=== PATIENT | female | born 1950 | race Caucasian/White ===

== ENCOUNTER → 2016-09-28 | Outpatient (CLI) | payer OTHER ==
[~2016-09-28] MED LIST: ASPI81TA28 PO; GLIM2TAB2 PO; LOSA100T65 PO; METF1TAB53 PO; NIAC1TAB59 PO; NIFE60TA55 PO; OMEG10007 PO; PRLSR20 PO
--- NOTE | 2016-09-28 16:59 | DIAGNOSTIC IMAGING REPORT ---
LEFT LOWER EXTREMITY VENOUS DOPPLER HISTORY: M79.605 Left leg pain COMPARISON STUDY: None. FINDINGS: There is normal compressibility, flow, and augmentation within the left lower extremity deep venous system. There is a subcutaneous fluid collection anterior to the knee which measures 6.9 x 7.0 x 1.4 cm. This favors a bursitis. IMPRESSION: No DVT within the left lower extremity. A subcutaneous fluid collection anterior to the knee which favors a bursitis. Electronically signed by: Mikhail Aldrich M.D. 09/28/2016 4:58 PM Dictated Date/Time: 09/28/2016 4:57 PM
== END | disposition home or self-care (01) ==
LOC: C.ULTR 16:27
PROVIDERS: ATTEND Physician Assistant
DX: M79.605 Pain in left leg (principal)

== ENCOUNTER → 2016-10-12 | Outpatient (CLI) | payer OTHER ==
[2016-10-12 18:24] LABS: ALT/SGPT 32 U/L (12-78); AST/SGOT 10 U/L (15-37); BLOOD UREA NITROGEN 26 mg/dl (7-18); BUN/CREATININE RATIO 21.5 (10-20); CALCIUM 9.3 mg/dl (8.5-10.1); CARBON DIOXIDE 27 mmol/L (21-32); CHLORIDE 106 mmol/L (98-107); GLUCOSE 149 mg/dl (70-99); POTASSIUM 4.2 mmol/L (3.5-5.1); SODIUM 139 mmol/L (136-145)
[2016-10-12 18:27] LABS: ALB/GLOB RATIO 1.1 (0.9-2); ALKALINE PHOSPHATASE 46 U/L (45-117)
[2016-10-13 06:50] LABS: ESTIMATED AVERAGE GLUCOSE 189 mg/dl; HA1C FLAG Normal (Normal)
== END | disposition home or self-care (01) ==
LOC: C.LABPBG 12:27
PROVIDERS: ATTEND Family Medicine
DX: E11.9 Type 2 diabetes mellitus without complications (principal)

== ENCOUNTER 2017-07-24 12:47 | Emergency (ER) | payer OTHER ==
[~2017-07-24] VITALS: Ht 165.1 cm; Wt 98.0 kg
[2017-07-24 12:48] VITALS: TEMP 36.8; Ht 165.1 cm; Wt 98.0 kg
--- NOTE | 2017-07-24 13:29 | EMERGENCY ROOM VISIT NOTE ---
ED Visit Note First contact with patient: 13:03 CHIEF COMPLAINT: Vaginal bleeding HISTORY OF PRESENTING ILLNESS: This is a 67-year-old female who presents to the emergency department with complaint of bleeding that started in the middle of the night around 3 AM. The patient states that she had pain in her lower back that she describes as a dull ache and pressure, she states that she had a sudden urge to go to the bathroom, and when she urinated there was a large amount of blood and small blood clots present. She states that she has continued to have some blood with urination, as well as some increased urgency and frequency, but denies dysuria. She states that she has been wearing a pad and has had some passage of blood onto the pad and blood with wiping. She is unsure if the blood is coming from her vagina or urethra. She is certain that she has not had any rectal bleeding. She states after she had the passage of large amount of blood last night, the back pain resolved and she no longer has any back pain. She also denies any abdominal pain, nausea or vomiting, fevers or chills, dizziness, or syncope. She takes a baby aspirin, denies any other blood thinners. She is sexually active with her , and does note that they had vaginal intercourse last night. She denies any history of urinary tract infections or kidney infections. She has not had a hysterectomy, states her last menstrual period was over 10 years ago when she went through menopause and denies any unusual bleeding since menopause. She denies any other associated symptoms of headaches, chest pain, shortness of breath, heart palpitations, or lower extremity swelling/pain. REVIEW OF SYSTEMS: A complete 10 point review of systems was reviewed with the patient with pertinent positives and negatives as per history of present illness. All else were negative. PAST MEDICAL HISTORY: Hypertension, diabetes type 2, GERD SOCIAL HISTORY: Lives at home with her . Denies tobacco use, alcohol or recreational drug use. ALLERGIES: No known allergies. PHYSICAL EXAM: CONSTITUTIONAL: Pleasant and cooperative. No acute distress. Well-hydrated, well appearing and well nourished. HEENT: Normocephalic, atraumatic. Pupils equal, round and reactive to light, EOMI. TMs normal. Pharynx normal. Moist mucous membranes. NECK: Supple, full active range of motion without discomfort. RESPIRATORY: Clear to auscultation bilaterally with no wheezing, crackles, rhonchi or stridor. Equal expansion bilaterally. CARDIOVASCULAR: Regular rate and rhythm with no murmurs, rubs or gallops. Normal peripheral perfusion. No edema. GASTROINTESTINAL: Soft, nontender throughout, nondistended. No rebound tenderness or guarding. No palpable masses or HSM. Bowel sounds present in all quadrants. No CVA tenderness. PELVIC EXAM: VULVA: No ulcers, vesicles or atrophy. VAGINA: Moderate amount of dark blood and small clots within the vaginal vault, no active bleeding from the cervical loss. No foul odor, no purulent discharge. CERVIX: Fingertip open , pink, nontender, no cervical motion tenderness, no discharge. UTERUS: Nontender. ADNEXA: No palpable masses or tenderness. A female haz tech was present as a exhaust equipment operator during the examination. MUSCULOSKELETAL: Full range of motion of all joints without discomfort. INTEGUMENTARY: No rash or other significant dermatologic conditions noted. NEUROLOGIC: Alert and oriented X 4 with normal affect. Normal strength and sensation all 4 extremities. No focal neurologic deficits noted. Normal speech. Normal gait observed. ED COURSE AND MEDICAL DECISION MAKING: CC: Patient presenting with complaint of bleeding DIFFERENTIAL DIAGNOSIS: Includes, but not limited to UTI/acute cystitis, pyelonephritis, hematuria, vaginal bleeding, uterine polyp, fibroids, malignancy , among others. INTERPRETATION OF LABS: No leukocytosis, no anemia, no significant electrolyte abnormalities, normal renal function, normal liver enzymes. Coagulation factors within normal limits. Beta hCG quant is negative. UA negative for infection. IMAGING: ULTRASOUND OF THE PELVIS CLINICAL HISTORY: Vaginal bleeding. COMPARISON STUDY: No priors. TECHNIQUE: Real-time, grayscale, and color flow sonography of the pelvis is performed both transabdominally and endovaginally. Images are reviewed in the transverse and longitudinal planes. FINDINGS: Uterus: The uterus is enlarged and heterogeneous, measuring 10.1 x 6.7 x 7.6 cm. Endometrium: The endometrium appears markedly thickened and heterogeneous, measuring up to 4.3 cm in diameter. Internal flow seen on color imaging Ovaries: The right ovary appears enlarged and hypoechoic, measuring 4.3 x 2.5 x 4.4 cm. The left ovary was not visualized. Doppler flow shown within the presumed right ovary. Pelvis: There is a small volume of free fluid in the cul-de-sac. No concerning adnexal lesion is seen. IMPRESSION: 1. The endometrium is markedly thickened and heterogeneous measuring up to 4.3 cm. Internal flow is seen on color imaging. Given the patient's age endometrial neoplasm is the diagnosis of exclusion. Gynecologic follow-up is recommended. 2. A structure in the right adnexa that likely represents the right ovary appears enlarged and hypoechoic for age. Again, this is pathologically indeterminant. Mass lesion is not excluded and follow-up with gynecology is recommended. 3. The left ovary was not visualized. 4. Nonspecific free fluid is identified in the cul-de-sac. EKG: Normal sinus rhythm with a rate of 88 bpm, occasional PVCs, no acute ischemic changes noted by my interpretation. No previous EKGs available for comparison. MEDICATION RECONCILIATION: I attest that I have personally reviewed the patient 's current medication list. INITIAL VITAL SIGNS REVIEW: I reviewed the patient's initial vital signs and interpret them as follows: T: Afebrile; BP: Hypertensive; HR: Tachycardic; RR : Within normal limits; Pulse Ox: Within normal limits on room air. Blood pressure screening: The patient was found to have an elevated blood pressure and was referred to their primary doctor for recheck and further treatment. SUMMARY: Patient was evaluated at bedside, history and physical exam performed. Patient is alert and oriented, no acute distress, resting, in the stretcher. Patient does not have any abdominal tenderness to palpation, no CVA tenderness. She currently reports 0/10 pain. Pelvic exam revealed moderate amount of dark blood and clots within the vaginal vault, cervix fingertip open, but no active bleeding from the cervix. No foul discharge, odor, or cervical motion tenderness. No uterine or adnexal tenderness on palpation during exam EKG shows normal sinus rhythm with no acute ischemic changes Orders were placed at bedside for labs, UA, pelvic ultrasound to evaluate for vaginal bleed. Patient discussed with Dr. Fisher, who agrees with my assessment and plan. Labs and imaging reviewed as above, pelvic ultrasound concerning for enlarged heterogenous endometrium and possible right adnexal mass, in setting of vaginal bleeding this is concerning for neoplasm. She is not anemic. I spoke with Dr. Gustafson, gynecology, regarding the patient's ultrasound findings and clinical exam, she agrees that the patient should have close follow up in the office and have a biopsy, she will help arrange an appointment for the patient. Patient reassessed multiple times throughout ED stay, she remained stable and well-appearing with no complaints. Patient was updated on all results and plan for discharge, she was encouraged to follow up with FURNITURE ASSEMBLER AND INSTALLER, as well as her PCP. Patient was also given strict return precautions should her symptoms worsen, she verbalized understanding. Patient was discharged home in stable condition and ambulatory. Current/Historical Medications Scheduled Aspirin (Aspirin Ec), 81 MG PO QAM Fish Oil ([place]-3), 1 CAP PO BID Glimepiride (Glimepiride), 1 TAB PO QAM Losartan Potassium (Cozaar), 100 MG PO QAM Metformin Hcl (Glucophage Ext Rel), 1,000 MG PO BID Nifedipine (Procardia Xl Ext Rel), 60 MG PO QAM Omeprazole (Prilosec), 20 MG PO QAM Allergies Coded Allergies: No Known Allergies (Unverified , 07/24/17) Vital Signs Date Time Temp Pulse Resp B/P (MAP) Pulse Ox O2 Delivery O2 Flow Rate FiO2 07/24/17 19:03 87 21 145/71 96 07/24/17 18:26 82 07/24/17 17:58 83 156/82 94 Room Air 07/24/17 15:58 98 152/106 97 Room Air 07/24/17 14:23 99 07/24/17 14:22 102 20 154/82 95 Room Air 07/24/17 14:21 95 Room Air 07/24/17 12:48 36.8 117 18 221/90 97 Laboratory Results 07/24/17 13:50 Red Blood Count 4.99, Mean Corpuscular Volume 88.2, Mean Corpuscular Hemoglobin 30.1, Mean Corpuscular Hemoglobin Concent 34.1, Mean Platelet Volume 10.9, Neutrophils (%) (Auto) 72.6, Lymphocytes (%) (Auto) 19.0, Monocytes (%) (Auto) 6.3, Eosinophils (%) (Auto) 1.2, Basophils (%) (Auto) 0.7, Neutrophils # (Auto) 6.28, Lymphocytes # (Auto) 1.64, Monocytes # (Auto) 0.54, Eosinophils # (Auto) 0.10, Basophils # (Auto) 0.06 07/24/17 13:50 Test 07/24/17 13:50 07/24/17 14:13 White Blood Count 8.64 K/uL (4.8-10.8) Red Blood Count 4.99 M/uL (4.2-5.4) Hemoglobin 15.0 g/dL (12.0-16.0) Hematocrit 44.0 % (37-47) Mean Corpuscular Volume 88.2 fL (80-100) Mean Corpuscular Hemoglobin 30.1 pg (25-34) Mean Corpuscular Hemoglobin Concent 34.1 g/dl (32-36) Platelet Count 289 K/uL (130-400) Mean Platelet Volume 10.9 fL (7.4-10.4) Neutrophils (%) (Auto) 72.6 % Lymphocytes (%) (Auto) 19.0 % Monocytes (%) (Auto) 6.3 % Eosinophils (%) (Auto) 1.2 % Basophils (%) (Auto) 0.7 % Neutrophils # (Auto) 6.28 K/uL (1.4-6.5) Lymphocytes # (Auto) 1.64 K/uL (1.2-3.4) Monocytes # (Auto) 0.54 K/uL (0.11-0.59) Eosinophils # (Auto) 0.10 K/uL (0-0.5) Basophils # (Auto) 0.06 K/uL (0-0.2) RDW Standard Deviation 44.6 fL (36.4-46.3) RDW Coefficient of Variation 13.8 % (11.5-14.5) Immature Granulocyte % (Auto) 0.2 % Immature Granulocyte # (Auto) 0.02 K/uL (0.00-0.02) Prothrombin Time 10.7 SECONDS (9.0-12.0) Prothromb Time International Ratio 1.0 (0.9-1.1) Activated Partial Thromboplast Time 24.5 SECONDS (21.0-31.0) Partial Thromboplastin Ratio 0.9 Anion Gap 8.0 mmol/L (3-11) Est Creatinine Clear Calc Drug Dose 55.4 ml/min Estimated GFR () 58.7 Estimated GFR (Non- 50.6 BUN/Creatinine Ratio 16.5 (10-20) Calcium Level 9.8 mg/dl (8.5-10.1) Total Bilirubin 0.6 mg/dl (0.2-1) Aspartate Amino Transf (AST/SGOT) 16 U/L (15-37) Alanine Aminotransferase (ALT/SGPT) 31 U/L (12-78) Alkaline Phosphatase 50 U/L (45-117) Total Protein 8.5 gm/dl (6.4-8.2) Albumin 4.3 gm/dl (3.4-5.0) Globulin 4.2 gm/dl (2.5-4.0) Albumin/Globulin Ratio 1.0 (0.9-2) Human Chorionic Gonadotropin, Quant 3 mIU/mL Urine Color YELLOW Urine Appearance CLEAR (CLEAR) Urine pH 6.0 (4.5-7.5) Urine Specific [place] 1.018 (1.000-1.030) Urine Protein TRACE (NEG) Urine Glucose (UA) NEG (NEG) Urine Ketones NEG (NEG) Urine Occult Blood 1+ (NEG) Urine Nitrite NEG (NEG) Urine Bilirubin NEG (NEG) Urine Urobilinogen NEG (NEG) Urine Leukocyte Esterase NEG (NEG) Urine WBC (Auto) 1-5 /hpf (0-5) Urine RBC (Auto) 0-4 /hpf (0-4) Urine Hyaline Casts (Auto) 1-5 /lpf (0-5) Urine Epithelial Cells (Auto) >30 /lpf (0-5) Urine Bacteria (Auto) NEG (NEG) Medications Administered Medications (Trade) Dose Ordered Sig/Vasiliy Route Start Time Stop Time Status Last Admin Dose Admin Sodium Chloride 500 ml @ 999 mls/hr Q31M STAT IV 07/24/17 16:30 07/24/17 17:00 DC 07/24/17 16:56 999 MLS/HR Departure Information Impression Primary Impression: Abnormal vaginal bleeding Dispostion Home / Self-Care Condition GOOD Referrals Jared Rodriguez M.D. (PCP) Canan. Gustafson MD Patient Instructions ED Bleed Irregular Vaginal, [facility] Additional Instructions You were evaluated and treated in the emergency department today for abnormal vaginal bleeding. You will need to follow-up with the gynecology office to have further evaluation of your bleeding. You will be called to set up a follow-up appointment. You may take Tylenol or ibuprofen as needed for abdominal cramping. You may also use a heating pad to your lower back or abdomen for improved comfort as needed. Please refrain from vaginal intercourse or inserting anything into the vagina until you have followed up with the make up operator helper, as this could increase your risk of bleeding. Please return to the ER for worsening symptoms, including severe pain, persistent heavy bleeding (soaking through 2 or more pads/tampons per hour), fever/chills, severe dizziness or passing out, or any other concerns.
[2017-07-24 14:21] VITALS: O2SAT 95
[2017-07-24 14:22] LABS: BASO % 0.7 %; BASO ABS # 0.06 K/uL (0-0.2); EOS % 1.2 %; IG# 0.02 K/uL (0.00-0.02); LYMPH ABS # 1.64 K/uL (1.2-3.4); MEAN CELL VOLUME 88.2 fL (80-100); MEAN CORPUSCULAR HEMOGLOBIN 30.1 pg (25-34); MEAN CORPUSCULAR HGB CONC 34.1 g/dl (32-36); MEAN PLATELET VOLUME 10.9 fL (7.4-10.4); MONO % 6.3 %; MONO ABS # 0.54 K/uL (0.11-0.59); NEUT % 72.6 %; NEUT ABS # 6.28 K/uL (1.4-6.5); PLATELET COUNT 289 K/uL (130-400); PTT PATIENT 24.5 SECONDS (21.0-31.0); RED CELL DISTRIBUTION WIDTH CV 13.8 % (11.5-14.5); RED CELL DISTRIBUTION WIDTH SD 44.6 fL (36.4-46.3); WHITE BLOOD COUNT 8.64 K/uL (4.8-10.8)
[2017-07-24 14:30] LABS: ALBUMIN 4.3 gm/dl (3.4-5.0); CALCIUM 9.8 mg/dl (8.5-10.1); CREATININE 1.11 mg/dl (0.60-1.20); POTASSIUM 3.9 mmol/L (3.5-5.1)
[2017-07-24 14:33] LABS: TOTAL PROTEIN 8.5 gm/dl (6.4-8.2)
--- NOTE | 2017-07-24 16:02 | DIAGNOSTIC IMAGING REPORT ---
ULTRASOUND OF THE PELVIS CLINICAL HISTORY: Vaginal bleeding. COMPARISON STUDY: No priors. TECHNIQUE: Real-time, grayscale, and color flow sonography of the pelvis is performed both transabdominally and endovaginally. Images are reviewed in the transverse and longitudinal planes. FINDINGS: Uterus: The uterus is enlarged and heterogeneous, measuring 10.1 x 6.7 x 7.6 cm. Endometrium: The endometrium appears markedly thickened and heterogeneous, measuring up to 4.3 cm in diameter. Internal flow seen on color imaging Ovaries: The right ovary appears enlarged and hypoechoic, measuring 4.3 x 2.5 x 4.4 cm. The left ovary was not visualized. Doppler flow shown within the presumed right ovary. Pelvis: There is a small volume of free fluid in the cul-de-sac. No concerning adnexal lesion is seen. IMPRESSION: 1. The endometrium is markedly thickened and heterogeneous measuring up to 4.3 cm. Internal flow is seen on color imaging. Given the patient's age endometrial neoplasm is the diagnosis of exclusion. Gynecologic follow-up is recommended. 2. A structure in the right adnexa that likely represents the right ovary appears enlarged and hypoechoic for age. Again, this is pathologically indeterminant. Mass lesion is not excluded and follow-up with gynecology is recommended. 3. The left ovary was not visualized. 4. Nonspecific free fluid is identified in the cul-de-sac. Electronically signed by: Genaro Garica M.D. 07/24/2017 4:00 PM Dictated Date/Time: 07/24/2017 3:53 PM
--- NOTE | 2017-07-24 16:25 | EMERGENCY ROOM VISIT NOTE ---
ED Visit Note First contact with patient: 13:03 Patient was seen by our PA/GRAIN SHOVELER. I was involved in the patient's care and did evaluate the patient myself. I was involved in the care throughout the ER stay. The patient presents with vaginal bleeding. Workup here does not show anemia or evidence for infection. She does have a thickened uterine endometrium consistent with possible malignancy, her ovary also was enlarged and possibly the enlargement could be due to malignancy. Patient is stable. She does require follow-up. MACHINE WOODWORKING SANDER is being consulted.
[2017-07-24] MEDS ORDERED: SODIUM CHLORIDE 0.9% 500ML 500 ML IV STA (16:30)
[2017-07-24 19:03] VITALS: BP 145/71; PULSE 87; O2SAT 96
== END 2017-07-24 19:05 | disposition home or self-care (01) ==
LOC: C.EDB 12:48 → C.EDA 19:05
DX: N93.9 Abnormal uterine and vaginal bleeding, unspecified (principal); I10 Essential (primary) hypertension; E11.9 Type 2 diabetes mellitus without complications; K21.9 Gastro-esophageal reflux disease without esophagitis

== ENCOUNTER 2017-07-31 16:32 | Observation (INO) | payer OTHER ==
[~2017-07-31] VITALS: Ht 165.1 cm; Wt 97.0 kg
[~2017-07-31 16:32] MED LIST changes: -NIAC1TAB59 PO
[2017-07-31] MEDS ORDERED: SODIUM CHLORIDE 0.9% 1000ML 1,000 ML IV STA (16:51)
--- NOTE | 2017-07-31 17:09 | EMERGENCY ROOM VISIT NOTE ---
ED Visit Note First contact with patient: 16:41 CHIEF COMPLAINT: Heavy vaginal bleeding HISTORY OF PRESENTING ILLNESS: This is a 67-year-old female who presents to the emergency department with complaint of acute onset of heavy vaginal bleeding approximately 2 hours ago. Patient states she had gone in to go to the bathroom when "blood just started pouring out." She states she has also been passing several golf ball sized blood clots today. She reports some mild pressure in her lower back that is constant since the bleeding started, she rates this as a 3/10. She denies any abdominal pain or cramping, nausea, vomiting, diarrhea, constipation, or urinary symptoms. She was seen in the emergency department on 07/24 for new onset of vaginal bleeding, ultrasound findings were concerning for possible ovarian mass and endometrial thickening. She is scheduled to have a biopsy done on 08/08 with gynecology, but has not seen them for follow-up yet. She has been observing pelvic rest since her onset of vaginal bleeding last week. She does take a baby aspirin every day, denies any other blood thinners. She denies any dizziness or lightheadedness, denies syncope, chest pain, shortness of breath, headache, vision changes, fevers or chills. REVIEW OF SYSTEMS: A complete 10 point review of systems was reviewed with the patient with pertinent positives and negatives as per history of present illness. All else were negative. PAST MEDICAL HISTORY: Type 2 diabetes, hypertension, GERD SOCIAL HISTORY: Lives at home with family. Denies tobacco, alcohol, recreational drug use. ALLERGIES: No known allergies. PHYSICAL EXAM: CONSTITUTIONAL: Pleasant and cooperative. No acute distress. Mildly dehydrated , but otherwise well appearing and well nourished. HEENT: Normocephalic, atraumatic. Pupils equal, round and reactive to light, EOMI. TMs normal. Pharynx normal. Tacky mucous membranes. NECK: Supple, full active range of motion without discomfort. RESPIRATORY: Clear to auscultation bilaterally with no wheezing, crackles, rhonchi or stridor. Equal expansion bilaterally. CARDIOVASCULAR: Regular rate and rhythm with no murmurs, rubs or gallops. Normal peripheral perfusion. No edema. GASTROINTESTINAL: Soft, nontender, nondistended. No palpable masses or HSM. Bowel sounds present in all quadrants. PELVIC EXAM: VULVA: No ulcers, vesicles or atrophy. VAGINA: Vaginal vault is filled with large blood clots and dark blood. No foul odor or purulent discharge. CERVIX: Os is open with blood clot lodged in the opening, pink, nontender, no cervical motion tenderness. Several large skin tags noted around the cervix. UTERUS: Nontender. ADNEXA: No tenderness. A nurse was present as a services executive during the examination. MUSCULOSKELETAL: Full range of motion of all joints without discomfort. INTEGUMENTARY: No rash or other significant dermatologic conditions noted. NEUROLOGIC: Alert and oriented X 4 with normal affect. Normal strength and sensation in all 4 extremities. No focal neurologic deficits noted. Normal speech. Normal gait observed. ED COURSE AND MEDICAL DECISION MAKING: CC: Patient presenting with complaint of heavy vaginal bleeding DIFFERENTIAL DIAGNOSIS: Includes, but not limited to dysfunctional uterine bleeding, uterine hemorrhage, anemia, dehydration, among others. INTERPRETATION OF LABS: No leukocytosis, no acute anemia, hyperglycemia, no other significant electrolyte abnormalities, slight worsening of renal function compared to baseline, normal liver enzymes and lipase. Coagulation factors within normal limits. UA consistent with contaminant, doubt infection. MEDICATION RECONCILIATION: I attest that I have personally reviewed the patient 's current medication list. INITIAL VITAL SIGNS REVIEW: I reviewed the patient's initial vital signs and interpret them as follows: T: Afebrile; BP: Hypertensive; HR: Tachycardic; RR : Within normal limits; Pulse Ox: Within normal limits on room air. Blood pressure screening: The patient was found to have an elevated blood pressure and was referred to the inpatient team for further management. SUMMARY: Patient was evaluated at bedside, history and physical exam performed. Patient is alert and oriented, in no acute distress. Patient was brought back to the room in a wheelchair, noted to be dripping blood through her pants and through the wheelchair onto the floor. She was assisted to change into a gown, noting that her pants are soaked in blood and there were several large, fist-sized clots in the patient's underwear. On external examination of the vagina, there is noted to be clotted blood as well as a steady trickling of blood. Her abdomen is soft and nontender on exam. She is noted to be hypertensive and mildly tachycardic. Orders were placed at bedside for labs, type and screen, IV fluids for hydration. Patient discussed with Dr. Holland, who agrees with my assessment and plan. Labs and imaging reviewed as above, not acutely anemic at this time, with slightly more than 1 point drop in hemoglobin from a week ago. On reassessment, patient reports that she has passed 3 more large clots and has soaked through the Chux pads on the bed. Pelvic exam was performed as above, noting large clots in the vagina and active slow bleeding from the cervix. I spoke on the phone with Dr. Mccabe, MAILROOM ASSOCIATE, who agrees to admit the patient for observation. Patient reassessed multiple times throughout ED stay, she remained stable and continues to deny any pain, dizziness, or shortness of breath. Patient was updated on all results and plan for admission, she verbalized understanding and was agreeable to this plan. Patient was stable at time of admission. Current/Historical Medications Scheduled Aspirin (Aspirin Ec), 81 MG PO QAM Fish Oil ([place]-3), 1 CAP PO BID Glimepiride (Glimepiride), 1 TAB PO QAM Losartan Potassium (Cozaar), 100 MG PO QAM Metformin Hcl (Glucophage Ext Rel), 1,000 MG PO BID Nifedipine (Procardia Xl Ext Rel), 60 MG PO QAM Omeprazole (Prilosec), 20 MG PO QAM Allergies Coded Allergies: No Known Allergies (Unverified , 07/24/17) Vital Signs Date Time Temp Pulse Resp B/P (MAP) Pulse Ox O2 Delivery O2 Flow Rate FiO2 07/31/17 17:53 74 18 147/85 96 Room Air 07/31/17 17:11 85 07/31/17 17:03 94 Room Air 07/31/17 16:37 36.8 104 18 197/84 96 Room Air Laboratory Results 07/31/17 17:02 Red Blood Count 4.63, Mean Corpuscular Volume 88.8, Mean Corpuscular Hemoglobin 29.6, Mean Corpuscular Hemoglobin Concent 33.3, Mean Platelet Volume 10.4, Neutrophils (%) (Auto) 71.8, Lymphocytes (%) (Auto) 17.7, Monocytes (%) (Auto) 7.6, Eosinophils (%) (Auto) 2.4, Basophils (%) (Auto) 0.3, Neutrophils # (Auto) 7.13, Lymphocytes # (Auto) 1.76, Monocytes # (Auto) 0.76, Eosinophils # (Auto) 0.24, Basophils # (Auto) 0.03 07/31/17 17:02 Test 07/31/17 17:02 07/31/17 19:15 White Blood Count 9.94 K/uL (4.8-10.8) Red Blood Count 4.63 M/uL (4.2-5.4) Hemoglobin 13.7 g/dL (12.0-16.0) Hematocrit 41.1 % (37-47) Mean Corpuscular Volume 88.8 fL (80-100) Mean Corpuscular Hemoglobin 29.6 pg (25-34) Mean Corpuscular Hemoglobin Concent 33.3 g/dl (32-36) Platelet Count 286 K/uL (130-400) Mean Platelet Volume 10.4 fL (7.4-10.4) Neutrophils (%) (Auto) 71.8 % Lymphocytes (%) (Auto) 17.7 % Monocytes (%) (Auto) 7.6 % Eosinophils (%) (Auto) 2.4 % Basophils (%) (Auto) 0.3 % Neutrophils # (Auto) 7.13 K/uL (1.4-6.5) Lymphocytes # (Auto) 1.76 K/uL (1.2-3.4) Monocytes # (Auto) 0.76 K/uL (0.11-0.59) Eosinophils # (Auto) 0.24 K/uL (0-0.5) Basophils # (Auto) 0.03 K/uL (0-0.2) RDW Standard Deviation 45.2 fL (36.4-46.3) RDW Coefficient of Variation 14.1 % (11.5-14.5) Immature Granulocyte % (Auto) 0.2 % Immature Granulocyte # (Auto) 0.02 K/uL (0.00-0.02) Prothrombin Time 10.4 SECONDS (9.0-12.0) Prothromb Time International Ratio 1.0 (0.9-1.1) Activated Partial Thromboplast Time 23.8 SECONDS (21.0-31.0) Partial Thromboplastin Ratio 0.9 Anion Gap 10.0 mmol/L (3-11) Est Creatinine Clear Calc Drug Dose 42.5 ml/min Estimated GFR () 42.8 Estimated GFR (Non- 37.0 BUN/Creatinine Ratio 18.6 (10-20) Calcium Level 9.3 mg/dl (8.5-10.1) Total Bilirubin 0.3 mg/dl (0.2-1) Aspartate Amino Transf (AST/SGOT) 19 U/L (15-37) Alanine Aminotransferase (ALT/SGPT) 33 U/L (12-78) Alkaline Phosphatase 47 U/L (45-117) Total Protein 8.0 gm/dl (6.4-8.2) Albumin 4.1 gm/dl (3.4-5.0) Globulin 3.9 gm/dl (2.5-4.0) Albumin/Globulin Ratio 1.1 (0.9-2) Urine Color RED Urine Appearance CLOUDY (CLEAR) Urine pH 6.0 (4.5-7.5) Urine Specific [place] 1.025 (1.000-1.030) Urine Protein 1+ (NEG) Urine Glucose (UA) NEG (NEG) Urine Ketones NEG (NEG) Urine Occult Blood 3+ (NEG) Urine Nitrite NEG (NEG) Urine Bilirubin NEG (NEG) Urine Urobilinogen NEG (NEG) Urine Leukocyte Esterase TRACE (NEG) Urine RBC >30 /hpf (0-4) Urine WBC 10-30 /hpf (0-5) Urine Epithelial Cells >30 /lpf (0-5) Urine Bacteria 1+ (NEG) Medications Administered Medications (Trade) Dose Ordered Sig/Vasiliy Route Start Time Stop Time Status Last Admin Dose Admin Sodium Chloride 1,000 ml @ 999 mls/hr Q1H1M STAT IV 07/31/17 16:51 07/31/17 17:51 DC 07/31/17 17:10 999 MLS/HR Departure Information Referrals No Doctor, Assigned (PCP) Patient Instructions My [facility]
[2017-07-31 17:16] LABS: BASO % 0.3 %; BASO ABS # 0.03 K/uL (0-0.2); EOS % 2.4 %; EOS ABS # 0.24 K/uL (0-0.5); HEMATOCRIT 41.1 % (37-47); HEMOGLOBIN 13.7 g/dL (12.0-16.0); IG# 0.02 K/uL (0.00-0.02); LYMPH % 17.7 %; LYMPH ABS # 1.76 K/uL (1.2-3.4); MEAN CELL VOLUME 88.8 fL (80-100); MEAN CORPUSCULAR HEMOGLOBIN 29.6 pg (25-34); MEAN CORPUSCULAR HGB CONC 33.3 g/dl (32-36); MEAN PLATELET VOLUME 10.4 fL (7.4-10.4); MONO % 7.6 %; MONO ABS # 0.76 K/uL (0.11-0.59); NEUT % 71.8 %; NEUT ABS # 7.13 K/uL (1.4-6.5); PLATELET COUNT 286 K/uL (130-400); RED CELL DISTRIBUTION WIDTH CV 14.1 % (11.5-14.5); RED CELL DISTRIBUTION WIDTH SD 45.2 fL (36.4-46.3); WHITE BLOOD COUNT 9.94 K/uL (4.8-10.8)
[2017-07-31 17:25] LABS: PTT PATIENT 23.8 SECONDS (21.0-31.0)
[2017-07-31 17:32] LABS: ALBUMIN 4.1 gm/dl (3.4-5.0); CALCIUM 9.3 mg/dl (8.5-10.1); CREATININE 1.44 mg/dl (0.60-1.20); POTASSIUM 4.4 mmol/L (3.5-5.1)
--- NOTE | 2017-07-31 19:49 | History and Physical ---
History & Physical Date & Time of Service: Jul 31, 2017 at 19:31 Chief Complaint: Extreme Vaginal Bleeding Primary Care Physician: Jared Rodriguez M.D. History of Present Illness Source: patient, family Patient is a 67 y/o who comes in with heavy bleeding that began around 3 PM this afternoon. She states she passed multiple golf sized blood clots and was pouring out prior to coming in. She was seen a week ago here for bleeding and had a workup including a pelvic US which showed a markedly thickened endometrium measuring 4.3 cm with blood flow, concerning for hyperplasia/ malignancy. She was scheduled for an office follow up with [facility] on 08/08/16 but ended up coming here today for the heavy bleeding. On today's evaluation her hgb dropped to 13.7 down from 15 last week. She was feeling very lightheaded and shaky but is feeling better currently. A pelvic exam was done by the physician graduate assistant in the ER and was told she removed multiple large clots form the vagina and had a continuous steady trickle. I was called in to evaluate the patient. On further discussion patient states she became menopausal at the age of 54 and never had any spotting or bleeding up until last week when she first came to the ER. She admits she has not seen a pumper hand in more then 15-20 years and has not had a pap smear since then. Last mammogram was in 2016. Past Medical/Surgical History Medical Problems: (1) Abnormal vaginal bleeding (2) Heavy menstrual bleeding (3) Postmenopausal bleeding (4) Thickened endometrium Social History Smoking Status: Never Smoker Alcohol Use: socially Drug Use: none Marital Status: Allergies Coded Allergies: No Known Allergies (Unverified , 07/24/17) Home Medications Scheduled Aspirin (Aspirin Ec), 81 MG PO QAM Fish Oil ([place]-3), 1 CAP PO BID Glimepiride (Glimepiride), 1 TAB PO QAM Losartan Potassium (Cozaar), 100 MG PO QAM Metformin Hcl (Glucophage Ext Rel), 1,000 MG PO BID Nifedipine (Procardia Xl Ext Rel), 60 MG PO QAM Omeprazole (Prilosec), 20 MG PO QAM Review of Systems Constitutional: No fever, No chills, No sweats, No weight loss, No weakness, No fatigue, No problem reported Respiratory: No cough, No sputum, No wheezing, No shortness of breath, No dyspnea on exertion, No dyspnea at rest, No hemoptysis, No problem reported Cardiovascular: No chest pain, No orthopnea, No PND, No edema, No claudication , No palpitations, No problem reported Abdomen: No pain, No nausea, No vomiting, No diarrhea, No constipation, No GI bleeding, No problem reported Genitourinary - Female: + vaginal bleeding Neurologic: No memory loss, No paralysis, No weakness, No numbness/tingling, No vertigo, No balance problems, No problem reported Hematologic / Lymphatic: No abnormal bleeding/bruising, No clotting problems, No swollen lymph nodes, No night sweats, No problem reported Integumentary: No rash, No itch, No new/changing skin lesions, No color change , No bleeding, No problem reported Physical Exam Vital Signs Date Time Temp Pulse Resp B/P (MAP) Pulse Ox O2 Delivery O2 Flow Rate FiO2 07/31/17 17:53 74 18 147/85 96 Room Air 07/31/17 17:11 85 07/31/17 17:03 94 Room Air 07/31/17 16:37 36.8 104 18 197/84 96 Room Air General Appearance: WD/WN, no apparent distress Respiratory/Chest: chest non-tender, lungs clear Cardiovascular: regular rate, rhythm Abdomen/GI: normal bowel sounds, non tender, soft Genitourinary - Female: external genitalia normal, + cervical lesion (cervical polyp noted), + abnormal uterine size (uterus enlarged) Extremities/Musculoskelatal: normal inspection, no calf tenderness, normal range of motion Neurologic/Psych: alert, oriented x 3 Skin: normal color, warm/dry, no rash Diagnostics Laboratory Results Results Past 24 Hours Test 07/31/17 17:02 Range/Units White Blood Count 9.94 4.8-10.8 K/uL Red Blood Count 4.63 4.2-5.4 M/uL Hemoglobin 13.7 12.0-16.0 g/dL Hematocrit 41.1 37-47 % Mean Corpuscular Volume 88.8 80-100 fL Mean Corpuscular Hemoglobin 29.6 25-34 pg Mean Corpuscular Hemoglobin Concent 33.3 32-36 g/dl Platelet Count 286 130-400 K/uL Mean Platelet Volume 10.4 7.4-10.4 fL Neutrophils (%) (Auto) 71.8 % Lymphocytes (%) (Auto) 17.7 % Monocytes (%) (Auto) 7.6 % Eosinophils (%) (Auto) 2.4 % Basophils (%) (Auto) 0.3 % Neutrophils # (Auto) 7.13 1.4-6.5 K/uL Lymphocytes # (Auto) 1.76 1.2-3.4 K/uL Monocytes # (Auto) 0.76 0.11-0.59 K/uL Eosinophils # (Auto) 0.24 0-0.5 K/uL Basophils # (Auto) 0.03 0-0.2 K/uL RDW Standard Deviation 45.2 36.4-46.3 fL RDW Coefficient of Variation 14.1 11.5-14.5 % Immature Granulocyte % (Auto) 0.2 % Immature Granulocyte # (Auto) 0.02 0.00-0.02 K/uL Prothrombin Time 10.4 9.0-12.0 SECONDS Prothromb Time International Ratio 1.0 0.9-1.1 Activated Partial Thromboplast Time 23.8 21.0-31.0 SECONDS Partial Thromboplastin Ratio 0.9 Sodium Level 137 136-145 mmol/L Potassium Level 4.4 3.5-5.1 mmol/L Chloride Level 104 98-107 mmol/L Carbon Dioxide Level 24 21-32 mmol/L Anion Gap 10.0 3-11 mmol/L Blood Urea Nitrogen 27 7-18 mg/dl Creatinine 1.44 0.60-1.20 mg/dl Est Creatinine Clear Calc Drug Dose 42.5 ml/min Estimated GFR () 42.8 Estimated GFR (Non- 37.0 BUN/Creatinine Ratio 18.6 10-20 Random Glucose 172 70-99 mg/dl Calcium Level 9.3 8.5-10.1 mg/dl Total Bilirubin 0.3 0.2-1 mg/dl Aspartate Amino Transf (AST/SGOT) 19 15-37 U/L Alanine Aminotransferase (ALT/SGPT) 33 12-78 U/L Alkaline Phosphatase 47 45-117 U/L Total Protein 8.0 6.4-8.2 gm/dl Albumin 4.1 3.4-5.0 gm/dl Globulin 3.9 2.5-4.0 gm/dl Albumin/Globulin Ratio 1.1 0.9-2 Diagnostic Radiology 07/24/17: ULTRASOUND OF THE PELVIS CLINICAL HISTORY: Vaginal bleeding. COMPARISON STUDY: No priors. TECHNIQUE: Real-time, grayscale, and color flow sonography of the pelvis is performed both transabdominally and enterovaginally. Images are reviewed in the transverse and longitudinal planes. FINDINGS: Uterus: The uterus is enlarged and heterogeneous, measuring 10.1 x 6.7 x 7.6 cm. Endometrium: The endometrium appears markedly thickened and heterogeneous, measuring up to 4.3 cm in diameter. Internal flow seen on color imaging Ovaries: The right ovary appears enlarged and hypoechoic, measuring 4.3 x 2.5 x 4.4 cm. The left ovary was not visualized. Doppler flow shown within the presumed right ovary. Pelvis: There is a small volume of free fluid in the cul-de-sac. No concerning adnexal lesion is seen. IMPRESSION: 1. The endometrium is markedly thickened and heterogeneous measuring up to 4.3 cm. Internal flow is seen on color imaging. Given the patient's age endometrial neoplasm is the diagnosis of exclusion. Gynecologic follow-up is recommended. 2. A structure in the right adnexa that likely represents the right ovary appears enlarged and hypoechoic for age. Again, this is pathologically indeterminant. Mass lesion is not excluded and follow-up with gynecology is recommended. 3. The left ovary was not visualized. 4. Nonspecific free fluid is identified in the cul-de-sac. Impression Assessment and Plan (1) Thickened endometrium (2) Postmenopausal bleeding (3) Heavy menstrual bleeding I had a long discussion with the patient and family on the current findings. I discussed that her US and bleeding are very concerning for possible hyperplasia and/or malignancy and that a tissue sample is warranted. I offered her an endometrial biopsy right now or she can wait until August 08 at her followup appointment when her bleeding may be better controlled. After a long discussion about the risks and benefits she decided she would like to proceed with the endometrial biopsy right now. She also would like to stay for observation as her bleeding scares her that she may pass out or worse if she was to go home now. I will admit her for observation and will begin aygestin to help with her bleeding. Endometrial biopsy was obtained in the ER and sent to pathology. Will repeat H&H q 6 hours to ensure there is no anemia. Resuscitation Status VTE Prophylaxis Will order VTE Prophylaxis: Yes Note Total Time: Critical Care 30 - 74 minutes
[2017-07-31 19:55] VITALS: BP_SYST 174; BP_SYST 183; BP_SYST 186; BP_DIAS 76; BP_DIAS 83; BP_DIAS 97; PULSE 120; PULSE 92; PULSE 94; TEMP 36.7; O2SAT 96; Ht 165.1 cm; Wt 97.0 kg
[2017-07-31] MEDS ORDERED: NORETHINDRONE ACETATE 5 MG TAB PO SCH ×2 (20:00→21:00)
[2017-07-31] MEDS: METFORMIN HCL 500 MG TABCR PO SCH (20:14)
[2017-07-31] MEDS ORDERED: NURSING VERBAL MED ORDER ONE (20:30)
[2017-07-31] MEDS ORDERED: NORETHINDRONE ACETATE 5 MG TAB PO ONE (21:00)
[2017-07-31] MEDS: SODIUM CHLORIDE 0.9% 1000ML 1,000 ML IV SCH (21:14)
[2017-07-31 21:15] VITALS: BP 162/89; PULSE 91; O2SAT 96
[2017-07-31] MEDS ORDERED: IV FLUIDS COMPLETED PRN (21:45)
[2017-07-31 23:15] VITALS: BP 158/81; PULSE 78; TEMP 37.2; O2SAT 96
[2017-07-31 23:15] LABS: HEMATOCRIT 36.3 % (37-47); HEMOGLOBIN 12.1 g/dL (12.0-16.0)
[2017-08-01 03:30] VITALS: BP 144/78; PULSE 81; TEMP 37; O2SAT 97
[2017-08-01] MEDS: SODIUM CHLORIDE 0.9% 1000ML 1,000 ML IV SCH (04:12)
[2017-08-01 07:17] LABS: HEMATOCRIT 35.2 % (37-47); HEMOGLOBIN 11.4 g/dL (12.0-16.0); MEAN CELL VOLUME 89.6 fL (80-100); MEAN CORPUSCULAR HGB CONC 32.4 g/dl (32-36); MEAN PLATELET VOLUME 10.2 fL (7.4-10.4); PLATELET COUNT 235 K/uL (130-400); RED CELL DISTRIBUTION WIDTH SD 46.4 fL (36.4-46.3); WHITE BLOOD COUNT 8.01 K/uL (4.8-10.8)
[2017-08-01 07:47] VITALS: BP 121/70; PULSE 81; TEMP 37; O2SAT 96
[2017-08-01] MEDS ORDERED: ASPIRIN 81 MG ECTAB PO SCH (08:00)
[2017-08-01] MEDS ORDERED: PANTOprazole SOD 40 MG TAB PO SCH (08:00)
[2017-08-01] MEDS ORDERED: GLIMEPIRIDE 2 MG TAB PO SCH (08:00)
[2017-08-01] MEDS ORDERED: LOSARTAN POTASSIUM 50 MG TAB PO SCH (08:00)
[2017-08-01] MEDS ORDERED: NIFEdipine 30 MG CR TAB PO SCH (08:00)
[2017-08-01] MEDS: METFORMIN HCL 500 MG TABCR PO SCH (08:21)
[2017-08-01 08:36] VITALS: BP 157/77
[2017-08-01] MEDS ORDERED: AYG5 PO (10:33)
--- NOTE | 2017-08-01 10:35 | Discharge Instructions ---
Discharge Instructions Date of Service Aug 01, 2017. 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 Instructions / Follow-Up Instructions / Follow-Up ACTIVITY RECOMMENDATIONS: * Avoid tampons, douching, hot tubs, pools, and intercourse until bleeding has stopped. * May shower as usual. * No strenuous activity for 24-48 hours. After 24-48 hours, you can do anything you feel like doing (driving and sports are okay). RETURN TO SCHOOL/WORK: * You may return to school or work after 24 hours unless specified by your physician. DIET: * Resume previous diet. MEDICATIONS: Resume previous medications unless instructed otherwise by your surgeon. Ibuprofen 200mg 2-3 tablets every 4-6 hours as needed --OR-- Aleve 2 tablets every 8-12 hours as needed for post-operative discomfort Medications are over the counter. Tylenol may be used if above medications are contraindicated or not preferred. Medication should be taken with food or milk. do not take on an empty stomach. SPECIAL CARE INSTRUCTIONS: * Check temperature twice daily for one week. Report any elevation over 101 degrees. * Call office if you experience increased pelvic pain or discomfort not relieved by pain medicine, if you have foul smelling vaginal discharge, if you have bleeding that is heavier than a normal menstrual flow. If you are changing a maxi pad every 1- 2 hours, this is too heavy. vaginal spotting is normal for 1-2 weeks. FOLLOW UP VISIT: Call your doctor's office for a post-operative visit. Current Hospital Diet Patient's current hospital diet: Regular Diet Discharge Diet Recommended Diet: Regular Diet Fluid Restriction: None Pending Studies Studies pending at discharge: yes List of pending studies: endometrial biopsy Medical Emergencies . Who to Call and When: Medical Emergencies: If at any time you feel your situation is an emergency, please call 911 immediately. . Non-Emergent Contact Non-Emergency issues call your: Primary Care Provider . . "Provider Documentation" section prepared by Luis Rubi. .
--- NOTE | 2017-08-01 10:37 | Surgery Progress Note ---
Surgery Progress Note Date of Service Aug 01, 2017. Subjective Post OP Day: 1 + feeling well, + ambulating, + flatus, + pain controlled Objective Vital Signs: Date Time Temp Pulse Resp B/P (MAP) Pulse Ox O2 Delivery O2 Flow Rate FiO2 08/01/17 08:36 157/77 (103) 08/01/17 08:15 Room Air 08/01/17 07:47 37.0 81 16 121/70 (87) 96 Room Air 08/01/17 03:30 37.0 81 18 144/78 (100) 97 Room Air 07/31/17 23:15 96 Room Air 07/31/17 23:15 37.2 78 18 158/81 (106) 96 Room Air 07/31/17 21:15 91 162/89 (113) 96 Room Air 07/31/17 19:55 36.7 92 18 186/83 96 Room Air 94 183/76 120 174/97 07/31/17 19:55 36.7 92 18 186/83 (117) 96 Room Air 94 183/76 (111) 120 174/97 (122) 07/31/17 19:55 96 Room Air 07/31/17 19:50 89 23 157/80 97 07/31/17 17:53 74 18 147/85 96 Room Air 07/31/17 17:11 85 07/31/17 17:03 94 Room Air 07/31/17 16:37 36.8 104 18 197/84 96 Room Air Abdomen: non tender, soft Extremities: non-tender, normal inspection, no pedal edema Laboratory Results: Results Past 24 Hours Test 07/31/17 17:02 07/31/17 19:15 07/31/17 23:01 07/31/17 23:28 Range/Units White Blood Count 9.94 4.8-10.8 K/uL Red Blood Count 4.63 4.2-5.4 M/uL Hemoglobin 13.7 12.1 12.0-16.0 g/dL Hematocrit 41.1 36.3 37-47 % Mean Corpuscular Volume 88.8 80-100 fL Mean Corpuscular Hemoglobin 29.6 25-34 pg Mean Corpuscular Hemoglobin Concent 33.3 32-36 g/dl Platelet Count 286 130-400 K/uL Mean Platelet Volume 10.4 7.4-10.4 fL Neutrophils (%) (Auto) 71.8 % Lymphocytes (%) (Auto) 17.7 % Monocytes (%) (Auto) 7.6 % Eosinophils (%) (Auto) 2.4 % Basophils (%) (Auto) 0.3 % Neutrophils # (Auto) 7.13 1.4-6.5 K/uL Lymphocytes # (Auto) 1.76 1.2-3.4 K/uL Monocytes # (Auto) 0.76 0.11-0.59 K/uL Eosinophils # (Auto) 0.24 0-0.5 K/uL Basophils # (Auto) 0.03 0-0.2 K/uL RDW Standard Deviation 45.2 36.4-46.3 fL RDW Coefficient of Variation 14.1 11.5-14.5 % Immature Granulocyte % (Auto) 0.2 % Immature Granulocyte # (Auto) 0.02 0.00-0.02 K/uL Prothrombin Time 10.4 9.0-12.0 SECONDS Prothromb Time International Ratio 1.0 0.9-1.1 Activated Partial Thromboplast Time 23.8 21.0-31.0 SECONDS Partial Thromboplastin Ratio 0.9 Sodium Level 137 136-145 mmol/L Potassium Level 4.4 3.5-5.1 mmol/L Chloride Level 104 98-107 mmol/L Carbon Dioxide Level 24 21-32 mmol/L Anion Gap 10.0 3-11 mmol/L Blood Urea Nitrogen 27 7-18 mg/dl Creatinine 1.44 0.60-1.20 mg/dl Est Creatinine Clear Calc Drug Dose 42.5 ml/min Estimated GFR () 42.8 Estimated GFR (Non- 37.0 BUN/Creatinine Ratio 18.6 10-20 Random Glucose 172 70-99 mg/dl Calcium Level 9.3 8.5-10.1 mg/dl Total Bilirubin 0.3 0.2-1 mg/dl Aspartate Amino Transf (AST/SGOT) 19 15-37 U/L Alanine Aminotransferase (ALT/SGPT) 33 12-78 U/L Alkaline Phosphatase 47 45-117 U/L Total Protein 8.0 6.4-8.2 gm/dl Albumin 4.1 3.4-5.0 gm/dl Globulin 3.9 2.5-4.0 gm/dl Albumin/Globulin Ratio 1.1 0.9-2 Urine Color RED Urine Appearance CLOUDY CLEAR Urine pH 6.0 4.5-7.5 Urine Specific [place] 1.025 1.000-1.030 Urine Protein 1+ NEG Urine Glucose (UA) NEG NEG Urine Ketones NEG NEG Urine Occult Blood 3+ NEG Urine Nitrite NEG NEG Urine Bilirubin NEG NEG Urine Urobilinogen NEG NEG Urine Leukocyte Esterase TRACE NEG Urine RBC >30 0-4 /hpf Urine WBC 10-30 0-5 /hpf Urine Epithelial Cells >30 0-5 /lpf Urine Bacteria 1+ NEG Bedside Glucose 95 70-90 mg/dl Test 08/01/17 06:50 Range/Units White Blood Count 8.01 4.8-10.8 K/uL Red Blood Count 3.93 4.2-5.4 M/uL Hemoglobin 11.4 12.0-16.0 g/dL Hematocrit 35.2 37-47 % Mean Corpuscular Volume 89.6 80-100 fL Mean Corpuscular Hemoglobin 29.0 25-34 pg Mean Corpuscular Hemoglobin Concent 32.4 32-36 g/dl RDW Standard Deviation 46.4 36.4-46.3 fL RDW Coefficient of Variation 14.0 11.5-14.5 % Platelet Count 235 130-400 K/uL Mean Platelet Volume 10.2 7.4-10.4 fL post menopausal bleeding s/p emb in ER Assessment & Plan regular diet discharged home f/u in office next week
== END 2017-08-01 11:25 | disposition home or self-care (01) ==
LOC: C.EDB 16:33 → C.OBG 19:16 → ENRESERV 19:38
PROVIDERS: ADMIT Obstetrics & Gynecology; ATTEND Obstetrics & Gynecology
DX: C54.1 Malignant neoplasm of endometrium (principal); N95.0 Postmenopausal bleeding; E11.9 Type 2 diabetes mellitus without complications; I10 Essential (primary) hypertension; K21.9 Gastro-esophageal reflux disease without esophagitis; Z79.52 Long term (current) use of systemic steroids; Z79.899 Other long term (current) drug therapy; Z79.84 Long term (current) use of oral hypoglycemic drugs

== ENCOUNTER → 2017-09-10 | Outpatient (CLI) | payer OTHER ==
[~2017-09-10] MED LIST changes: +AYG5 PO
[2017-09-10 16:59] LABS: ALBUMIN 3.6 gm/dl (3.4-5.0); ALT/SGPT 29 U/L (12-78); AST/SGOT 15 U/L (15-37); BLOOD UREA NITROGEN 29 mg/dl (7-18); CARBON DIOXIDE 25 mmol/L (21-32); CHOLESTEROL 151 mg/dl (0-200); CREATININE 1.26 mg/dl (0.60-1.20); GLUCOSE 159 mg/dl (70-99); POTASSIUM 4.3 mmol/L (3.5-5.1); SODIUM 138 mmol/L (136-145)
[2017-09-10 17:02] LABS: ALKALINE PHOSPHATASE 41 U/L (45-117); LDL CHOLESTEROL CALCULATED 64 mg/dl; TOTAL PROTEIN 7.6 gm/dl (6.4-8.2)
[2017-09-11 06:01] LABS: HEMOGLOBIN A1C 6.2 % (4.5-5.6)
== END | disposition home or self-care (01) ==
LOC: C.LABPBG 11:31
PROVIDERS: ATTEND Physician Assistant
DX: E11.9 Type 2 diabetes mellitus without complications (principal); Z00.00 Encounter for general adult medical examination without abnormal findings; E78.5 Hyperlipidemia, unspecified